=== PATIENT | female | born 1985 | race Caucasian/White ===

== ENCOUNTER → 2023-12-23 12:16 | Outpatient (REF) | payer OTHER, SELFPAY ==
[2023-12-23 13:51] LABS: INR 1.15; PT 14.7 Sec (11.4-14.6)
[2023-12-23 14:03] LABS: ALT (SGPT) 22 U/L (0-35); AST (SGOT) 47 U/L (14-36); Albumin 3.6 g/dl (3.5-5.0); Alkaline Phosphatase 160 U/L (38-126); Blood Urea Nitrogen 15 mg/dl (7-17); Calcium 8.6 mg/dl (8.4-10.2); Carbon Dioxide 27 mmol/L (22-30); Chloride 100 mmol/L (98-107); Direct Bilirubin 0.7 mg/dl (0.0-0.4); Glucose 94 mg/dl (70-99); Potassium 4.2 mmol/L (3.5-5.1); Sodium 132 mmol/L (135-145); Total Bilirubin 1.1 mg/dl (0.2-1.3); Total Protein 6.2 g/dl (6.3-8.2); eGFR > 60.00
== END ==
LOC: REG 12:16
PROVIDERS: ATTENDING PHYSICIAN Nurse Practitioner
DX: K70.31 Alcoholic cirrhosis of liver with ascites (principal); B19.20 Unspecified viral hepatitis C without hepatic coma
CPT/HCPCS: 36415; 80053; 82248; 85610

== ENCOUNTER 2023-12-23 12:45 | Emergency (ER) | payer OTHER, SELFPAY ==
[2023-12-23 12:54] VITALS: BP 120/84
[2023-12-23 14:21] VITALS: BMI 26.7
[2023-12-23 16:47] VITALS: BP 100/77
[2023-12-23] MEDS: LASIX 40 MG IV (16:47)
[2023-12-23 16:49] VITALS: BP 100/77
[2023-12-23 17:00] LABS: % Basophils 0.8 % (0-2); % Eosinophils 1.4 % (0-6); % Immature Granulocytes 0.6 % (0-0.5); % Lymphocytes 19.3 % (20.5-51.1); % Monocytes 5.8 % (1.7-9.3); % Neutrophils 72.1 % (42.2-75.2); Absolute Basophils 0.1 10^3/uL (0-0.2); Absolute Eosinophils 0.1 10^3/uL (0-0.7); Absolute Lymphocytes 1.2 10^3/uL (1.2-3.4); Absolute Monocytes 0.4 10^3/uL (0.1-0.6); Absolute Neutrophils 4.6 10^3/uL (1.4-6.5); Hematocrit 37.8 % (37.0-47.0); Hemoglobin 12.8 g/dL (12.0-16.0); Mean Corp Hgb Conc. 33.9 g/dL (33.0-37.0); Mean Corpuscular Hgb 26.7 pg (27.0-31.0); Mean Corpuscular Volume 78.9 fL (81.0-99.0); Mean Platelet Volume 9.9 fL (7.4-10.4); Nucleated Red Blood Cells % 0 %; Platelet Count 198 10^3/uL (130-400); Red Blood Cell Count 4.79 10^6/uL (4.20-5.40); Red Cell Dist. Width 16.6 % (11.5-14.5); White Blood Cell Count 6.4 10^3/uL (4.8-10.8)
[2023-12-23 17:14] LABS: INR 1.22; PT 15.5 Sec (11.4-14.6)
[2023-12-23 17:56] LABS: NT-proBNP 498 pg/ml; Troponin I < 0.012 ng/ml
[2023-12-23 18:27] LABS: Urine Albumin Negative (Neg - Trace); Urine Bilirubin Negative (Negative); Urine Character Clear (Clear); Urine Color Yellow; Urine Glucose Negative (Negative); Urine Ketone Negative (Negative); Urine Leukocyte Negative (Negative); Urine Nitrite Negative (Negative); Urine Occult Blood Negative (Negative); Urine Urobilinogen Negative (Neg - 1+)
--- NOTE | 2023-12-23 20:13 | ED.GENMED ---
History of Present Illness
General
Chief Complaint: Swelling
Source: patient and spouse
Exam Limitations: none
Time Seen by Provider: 12/23/23 14:59
Nursing documentation reviewed up to this point in time: agreed with
Travel History
Have you had any contact with someone who has COVID-19?: No
Do you have any symptoms of coronavirus? Fever > 100 degrees, chills, cough, shortness of breath, sore throat, loss of taste or smell, muscle aches, or headache?: No
History of Present Illness
History of Present Illness:
38-year-old female past medical history of hepatitis C cirrhosis frequent ascites previous substance abuse presenting to the emergency department today with concerns of increased fluid of her legs abdomen and some intermittent shortness of breath.
Denies any specific chest pain vomiting. Has had symptoms ongoing for has not had a paracentesis in multiple months.
Past History
Past History
ED Past Medical History: Other
Social History
Drug: Narcotics, IVDA and Other (amphetamine)
Review of Systems
Review of Systems
Allergies reviewed?: Yes
All Other Systems: ROS reviewed and negative except as documented in HPI and ROS
Phy Exam
Physical Exam
Physical Exam:
GENERAL: Alert , in no apparent distress
EYE: pupils equal and reactive
NECK: Supple, no significant adenopathy.
ENT: o/p clr, mmm.
CARDIAC: Regular rate and rhythm .
LUNGS: Clear breath sounds bilaterally, no acute respiratory distress, no wheezes/rales/rhonchi
ABDOMEN: Some distention of the abdomen no focal tenderness no redness or warmth.
NEUROLOGICAL: Alert and oriented, no focal neuro deficits
SKIN: Warm and dry, skin intact.
MUSCULOSKELETAL: well perfused.
PSYCH: Normal and appropriate interaction.
Course
Orders/Labs/Results
Orders:
Orders
12/23/23 16:21
EKG [Electrocardiogram (*1)] Urgent
Reason for Study: Fatigue / Weakness
Furosemide [Lasix] 40 mg IV NOW STA
12/23/23 16:22
EKG- Treatment ONCE
Chest [CR Chest - 2 Views ] Urgent
Comment:
Reason For Exam: sob
12/23/23 16:46
BNP [NT-proBNP] Urgent
Complete Blood Count/With Diff Urgent
Prothrombin Time Urgent
Troponin I Urgent
12/23/23 18:14
Urinalysis Reflex To Culture Urgent
Date Specimen was Collected: 12/23/23
Time Specimen was Collected: 18:12
Abnormal Lab Results
12/23/23
16:46
MCV 78.9 L fL
(81.0-99.0)
MCH 26.7 L pg
(27.0-31.0)
RDW 16.6 H %
(11.5-14.5)
Immature Gran % 0.6 H %
(0-0.5)
Lymphocytes % 19.3 L %
(20.5-51.1)
PT 15.5 H Sec
(11.4-14.6)
12/23/23 16:46
12/23/23 17:07
Vital Signs
Initial and Last Documented VS:
Initial Vital Signs
Temp Pulse Resp BP Pulse Ox
98.0 F 97 18 120/84 94
12/23/23 12:54 12/23/23 12:54 12/23/23 12:54 12/23/23 12:54 12/23/23 12:54
Last Documented Vital Signs
Temp Pulse Resp BP Pulse Ox
98.0 F 74 16 100/77 99
12/23/23 12:54 12/23/23 16:49 12/23/23 16:49 12/23/23 16:49 12/23/23 16:49
MDM/Problems Addressed
MDM/Problems Addressed:
38-year-old female presenting to the emergency department today with concerns of increased abdominal distention and leg swelling and some intermittent shortness of breath. Does have a history of liver disease and does frequently get fluid
overloaded. Denies specific chest pain. Evaluation here without emergent findings labs without emergent features troponin negative BMP without significant elevation urinalysis normal chest x-ray without signs of edema patient does have swelling on
her legs on examination and does have fluid to her abdomen consistent with ascites but no signs of SBP. Patient appears stable for outpatient tap routinely with interventional radiology. Interventional radiology was contacted in regard to this.
Otherwise patient can additionally follow-up with cardiology due to the more diffuse swelling for additional assessment. Return precautions were given.
*Critical Care Note
Total Time (30-74mins, 75-104mins- exclusive of procedures): Not Applicable
ED Attending Note
-
Portions of this chart may have been created with voice recognition software.� Occasional wrong word or��sound alike� substitutions may have occurred due to the inherent limitations of voice recognition software.
Discharge Plan
Departure
Patient Disposition: Home (Routine Discharge)
Date of Disposition: 12/23/23
Time of Disposition: 20:17
Patient with high blood pressure during this ER visit?: No
Condition: Good
Covid-19: Not Applicable
Discharge Problem:
Ascites, Edema, peripheral
Instructions: Dependent Edema (DC)
Prescriptions:
No Action
spironolactone 25 mg tablet
50 mg PO DAILY
furosemide [Lasix] 40 mg Tablet
40 mg PO DAILY
Referrals:
NONE,* [Family Provider] -
Shaka Cooper MD [Active] - Follow up in 5-7 days
Damir Rolle MD [Active] - Follow up in 5-7 days
Activity Restrictions/Additional Instructions:
You came to the emergency department today with concerns of excess fluid. You were given an additional dose of IV Lasix. You do have excessive fluid but nothing immediately emergent. It is important to get close follow-up with interventional
radiology. Please call [phone] to set up an appointment for an outpatient paracentesis. Please additionally follow-up closely with cardiology. Return to the emergency department immediately for any worsening, new or concerning symptoms.
Interventions
Interventions:
*Risk Screen - Suicide Last Done: 12/23/23 14:17
*General Assessment Last Done: 12/23/23 14:17
*Neglect/Abuse Screening Last Done: 12/23/23 14:17
ED- Fall Risk Assessment Last Done: 12/23/23 14:17
*ED COVID-19 Vaccine History Last Done: 12/23/23 14:17
ED- Cardiac Assessment Last Done: 12/23/23 14:17
ED- Pulmonary Assessment Last Done: 12/23/23 14:17
ED-Skin Assessment Last Done: 12/23/23 14:17
--- NOTE | 2023-12-24 15:06 | PN.[facility].UPD ---
Update Note - [facility]
- -
ED physician reached out to regarding this patient needing a paracentesis today, patient was told to follow up with [facility] in the am. We do not have an active excellence coach order for a Paracentesis for this patient. Patient was non-compliant
with GI visits and labs and they pulled her order until she see's them in the office. I called the patient to remind her of this, phone went to and a message was left. This has been discussed with the patient several times in the past. If a
paracentesis is needed an OP order will need to be sent to [facility].
== END 2023-12-23 20:49 | disposition home or self-care (01) ==
LOC: EMR 12:45
PROVIDERS: Physician Assistant; EMERGENCY PHYSICIAN Emergency Medicine
DX: R18.8 Other ascites (principal); K74.60 Unspecified cirrhosis of liver; Z86.19 Personal history of other infectious and parasitic diseases
CPT/HCPCS: 99283; 96374; 36415; 71046; 80053; 81003; 82248; 83880; 84484; 85025; 85610; 93005

== ENCOUNTER 2024-08-24 11:33 | Emergency (ER) | payer OTHER, SELFPAY ==
[2024-08-24 11:42] VITALS: BP 136/85
[2024-08-24 12:02] LABS: % Basophils 0.7 % (0-2); % Immature Granulocytes 0.2 % (0-0.5); % Lymphocytes 25.6 % (20.5-51.1); % Monocytes 7.4 % (1.7-9.3); % Neutrophils 64.1 % (42.2-75.2); Absolute Eosinophils 0.1 10^3/uL (0-0.7); Absolute Lymphocytes 1.1 10^3/uL (1.2-3.4); Absolute Monocytes 0.3 10^3/uL (0.1-0.6); Absolute Neutrophils 2.9 10^3/uL (1.4-6.5); Hematocrit 37.8 % (37.0-47.0); Hemoglobin 12.8 g/dL (12.0-16.0); Mean Corp Hgb Conc. 33.9 g/dL (33.0-37.0); Mean Corpuscular Hgb 28.1 pg (27.0-31.0); Mean Corpuscular Volume 82.9 fL (81.0-99.0); Mean Platelet Volume 10.4 fL (7.4-10.4); Nucleated Red Blood Cells % 0 %; Platelet Count 178 10^3/uL (130-400); Red Blood Cell Count 4.56 10^6/uL (4.20-5.40); Red Cell Dist. Width 14.9 % (11.5-14.5); White Blood Cell Count 4.5 10^3/uL (4.8-10.8)
[2024-08-24 12:15] LABS: Blood Urea Nitrogen 10 mg/dl (7-17); Calcium 8.9 mg/dl (8.4-10.2); Carbon Dioxide 24 mmol/L (22-30); Chloride 106 mmol/L (98-107); Glucose 63 mg/dl (70-99); Lipase 68 U/L (23-300); Sodium 140 mmol/L (135-145); eGFR > 60.00
--- NOTE | 2024-08-24 13:49 | ED.GENMED ---
History of Present Illness
General
Chief Complaint: Abdominal Symptoms
Source: patient
Exam Limitations: none
Time Seen by Provider: 08/24/24 13:16
Nursing documentation reviewed up to this point in time: agreed with
History of Present Illness
History of Present Illness:
39-year-old female presents emergency room complaining of her abdomen feeling with fluid and requiring paracentesis. She has not had paracentesis since July 2023. She has been in rehab for opiate abuse. She is maintained on Subutex. She has
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 She states she called for an appointment because she ran out of her Lasix and spironolactone within the past several months, and was unable to get seen again.
Past History
Past History
ED Past Medical History: Other (Hepatitis C, cirrhosis)
ED Past Surgical History: Other (Left arm surgery)
Social History
Tobacco: Smoker
Alcohol: None
Drug: Narcotics, IVDA and Other (amphetamine)
Review of Systems
Review of Systems
Allergies reviewed?: Yes
All Other Systems: Not applicable
Constitutional: Reports no symptoms
EENT: Reports no symptoms
Respiratory: Reports no symptoms
Cardiac: Reports no symptoms
ABD/GI: Reports other (Abdomen swelling)
: Reports no symptoms
Musculoskeletal: Reports no symptoms
Skin: Reports no symptoms
Neurological: Reports no symptoms
Endocrine: Reports no symptoms
Hematologic/Lymphatic: Reports no symptoms
Psychiatric: Reports no symptoms
Phy Exam
Physical Exam
Physical Exam:
Physical Exam
General: no apparent distress, not acutely ill
Neck: supple. no meningeal signs. normal posterior pharynx
Heart: s1/s2 regular rate and rhythm, no murmur. equal radial
pulses.
HEENT: Pupils equal round reactive to light, EOMI
Lungs: no acute respiratory distress. clear bilaterally
Abdomen: normal bowel sounds. not tender. no CVAT, ascites, no abdominal tenderness
Neuro: alert and oriented. no focal neurological deficits cranial nerves II through XII intact
Skin: no rash
Psychiatric: well kept. interactive and cooperative
Extremities: no edema. no calf tenderness. negative homans. good distal pulses
Course
Orders/Labs/Results
Orders:
Orders
08/24/24 11:53
Basic Metabolic Panel Urgent
Complete Blood Count/With Diff Urgent
Lipase Urgent
08/24/24 12:16
Add On- LAB Urgent
Tests Added?: LFT's
08/24/24 13:45
Mdhti-Uucy-Zkwrtzj Routine
Potassium Urgent
08/24/24 14:46
Furosemide [Lasix] 40 mg PO NOW STA
08/24/24 14:56
Spironolactone [Aldactone] 50 mg PO NOW STA
Abnormal Lab Results
08/24/24 08/24/24
11:53 13:45
WBC 4.5 L 10^3/uL
(4.8-10.8)
RDW 14.9 H %
(11.5-14.5)
Absolute Lymphs (auto) 1.1 L 10^3/uL
(1.2-3.4)
Glucose 63 L mg/dl
(70-99)
Total Protein 6.0 L g/dl
(6.3-8.2)
Albumin 3.4 L g/dl
(3.5-5.0)
08/24/24 11:53
08/24/24 13:45
Vital Signs
Initial and Last Documented VS:
Initial Vital Signs
Temp Pulse Resp BP Pulse Ox
98.2 F 74 19 136/85 97
08/24/24 11:42 08/24/24 11:42 08/24/24 11:42 08/24/24 11:42 08/24/24 11:42
Last Documented Vital Signs
Temp Pulse Resp BP Pulse Ox
98.2 F 72 19 136/85 97
08/24/24 11:42 08/24/24 15:03 08/24/24 11:42 08/24/24 11:42 08/24/24 11:42
MDM/Problems Addressed
Differential Diagnosis Includes:
Cirrhosis, ascites
MDM/Problems Addressed:
39-year-old female with cirrhosis and ascites, no indication for emergent paracentesis. Do not suspect SBP. Discussed with gastroenterology, who will follow-up with patient tomorrow.
Chronic conditions affecting care: Other (Cirrhosis)
Acute Exacerbation and/or Progression of Chronic Illness: Other (Cirrhosis)
*Critical Care Note
Total Time (30-74mins, 75-104mins- exclusive of procedures): Not Applicable
Data Reviewed
Further Testing Considered But Not Given:
CT abdomen pelvis not indicated
Patient Management
Social determinants of health affecting care: Living situation and Substance abuse (Now in recovery)
Discussion with other providers: Coding Tech (Discussed with Dr. Torres, gastroenterology, has arrange follow-up)
Escalation/DeEscalation of care consider admission/obs:
Admit not indicated
ED Attending Note
-
Portions of this chart may have been created with voice recognition software.� Occasional wrong word or��sound alike� substitutions may have occurred due to the inherent limitations of voice recognition software.
Discharge Plan
Departure
Patient Disposition: Home (Routine Discharge)
Date of Disposition: 08/24/24
Time of Disposition: 14:48
Patient with high blood pressure during this ER visit?: Yes
Condition: Good
Discharge Problem:
Abdominal ascites
Instructions: Fluid in the Belly (Ascites) (DC), BLOOD PRESSURE
Prescriptions:
New
furosemide [Lasix] 40 mg tablet
40 mg PO DAILY Qty: 7 0RF
spironolactone 50 mg tablet
50 mg PO DAILY Qty: 7 0RF
No Action
spironolactone 25 mg tablet
50 mg PO DAILY
furosemide [Lasix] 40 mg Tablet
40 mg PO DAILY
Referrals:
Suzna Dickson MD [Active] - Tomorrow
Osmani Harris DO [Active] - Next open appointment
NONE,* [Family Provider] - Call in 1-3 days for appt
Interventions
Interventions:
*Risk Screen - Suicide Last Done: 08/24/24 11:42
*General Assessment Last Done: 08/24/24 11:42
*Neglect/Abuse Screening Last Done: 08/24/24 11:42
ED- Fall Risk Assessment Last Done: 08/24/24 15:18
*Nursing Disposition Last Done: 08/24/24 15:18
ZG-Wpxsec-Rfazbbuxad Assessment Last Done: 08/24/24 13:30
Discharge Date and Time
Discharge Date/Time: 08/24/24 15:20
Print Language: ALBANIAN
[2024-08-24 14:38] LABS: ALT (SGPT) 16 U/L (0-35); AST (SGOT) 34 U/L (14-36); Albumin 3.4 g/dl (3.5-5.0); Alkaline Phosphatase 119 U/L (38-126); Direct Bilirubin 0.4 mg/dl (0.0-0.4); Potassium 4.3 mmol/L (3.5-5.1); Total Bilirubin 0.9 mg/dl (0.2-1.3)
[2024-08-24] MEDS: LASIX 40 MG PO (15:03)
[2024-08-24] MEDS: ALDACTONE 50 MG PO (15:03)
== END 2024-08-24 15:20 | disposition home or self-care (01) ==
LOC: EMR 11:33
PROVIDERS: Emergency Medicine; EMERGENCY PHYSICIAN Emergency Medicine
DX: R18.8 Other ascites (principal); K74.60 Unspecified cirrhosis of liver; F17.200 Nicotine dependence, unspecified, uncomplicated
CPT/HCPCS: 99283; 80048; 80076; 83690; 84132; 85025

== ENCOUNTER 2024-12-16 20:29 | Emergency (ER) | payer OTHER, SELFPAY ==
[2024-12-16 20:32] VITALS: BP 147/97
--- NOTE | 2024-12-16 23:47 | ED.GENMED ---
History of Present Illness
General
Chief Complaint: Prescription Refill
Source: patient
Exam Limitations: none
Time Seen by Provider: 12/16/24 23:42
Nursing documentation reviewed up to this point in time: agreed with
History of Present Illness
History of Present Illness:
This 39-year-old female presents to the emergency department in need of methadone. She gets her 35 mg of methadone at the methadone clinic. Today she did not have access to her vehicle until it was too late. She went to the clinic and it was
already closed. Possibly due to the weather.
Past History
Past History
ED Past Medical History: Other (Hepatitis C, cirrhosis)
ED Past Surgical History: Other (Left arm surgery)
Social History
Tobacco: Smoker
Alcohol: None
Drug: Narcotics, IVDA and Other (amphetamine)
Review of Systems
Review of Systems
Allergies reviewed?: Yes
All Other Systems: ROS reviewed and negative except as documented in HPI and ROS
Constitutional: Reports no symptoms
EENT: Reports no symptoms
Respiratory: Reports no symptoms
Cardiac: Reports no symptoms
ABD/GI: Reports no symptoms
: Reports no symptoms
Musculoskeletal: Reports no symptoms
Skin: Reports no symptoms
Neurological: Reports no symptoms
Endocrine: Reports no symptoms
Hematologic/Lymphatic: Reports no symptoms
Psychiatric: Reports no symptoms
Phy Exam
General Physical Exam
General Presentation: well appearing
General Skin: warm and dry
General Habitus: normal
General Mental: alert
Pulmonary Exam
Pulmonary Exam: no respiratory distress and no cough
Neurological Exam
Neurological Exam: alert and oriented x3
Musculoskeletal Exam
Musculoskeletal Exam: full ROM
Skin Exam
Skin Exam: normal color and warm/dry
Psychiatric Exam
Psychiatric Exam: normal mood/affect
Course
Orders/Labs/Results
Orders:
Orders
12/16/24 23:00
Flush (0.9% Sodium Chloride) [Flush (Nss)] See Dose Instructions IV PER PROTOCOL
12/16/24 23:53
Methadone HCl [Methadone 100 mg/10 ml] 35 mg PO NOW STA
Vital Signs
Initial and Last Documented VS:
Initial Vital Signs
Temp Pulse Resp BP Pulse Ox
97.9 F 84 18 147/97 99
12/16/24 20:32 12/16/24 20:32 12/16/24 20:32 12/16/24 20:32 12/16/24 20:32
Last Documented Vital Signs
Temp Pulse Resp BP Pulse Ox
97.9 F 78 20 129/85 98
12/16/24 20:32 12/17/24 00:16 12/17/24 00:16 12/17/24 00:16 12/17/24 00:16
*Critical Care Note
Total Time (30-74mins, 75-104mins- exclusive of procedures): Not Applicable
ED Attending Note
-
Portions of this chart may have been created with voice recognition software.� Occasional wrong word or��sound alike� substitutions may have occurred due to the inherent limitations of voice recognition software.
Discharge Plan
Departure
Patient Disposition: Home (Routine Discharge)
Date of Disposition: 12/16/24
Time of Disposition: 23:54
Patient with high blood pressure during this ER visit?: Yes
Discharge Problem:
Methadone maintenance therapy patient
Instructions: Methadone, BLOOD PRESSURE
Prescriptions:
No Action
spironolactone 25 mg tablet
50 mg PO DAILY
furosemide [Lasix] 40 mg Tablet
40 mg PO DAILY
furosemide [Lasix] 40 mg tablet
40 mg PO DAILY Qty: 7 0RF
spironolactone 50 mg tablet
50 mg PO DAILY Qty: 7 0RF
Referrals:
[facility] [Outside]
NONE,* [Family Provider] -
Activity Restrictions/Additional Instructions:
It was a pleasure meeting you and taking part in your care. We hope for your continued healing and wellness.
Please read discharge instructions in their entirety. However, they are for general education and may not describe your exact diagnosis at discharge. Information on your ER visit and medical conditions were discussed with you along with appropriate
follow up information...
If indicated, please take your medications as instructed and indicated on discharge paperwork.
Please schedule a follow up appointment as directed. Call to schedule an appointment
Please return to the emergency department with ANY change in, persisting, or worsening of symptoms. If any of your symptoms do not improve, or persist, or become more severe within 6-12 hours, please return to the emergency department for further
care.
Please return to the emergency department if you develop a headache, neck pain/stiffness, fever greater than 100.4F, chest pain, shortness of breath, persistent nausea, vomiting, slurred speech, difficulty walking, numbness/tingling, weakness, signs
of infection or any other symptoms that are worrisome to you.
or E-mail me directly at [email or web address]
Interventions
Interventions:
*Risk Screen - Suicide Last Done: 12/17/24 00:17
*General Assessment Last Done: 12/17/24 00:17
*Neglect/Abuse Screening Last Done: 12/17/24 00:17
ED- Fall Risk Assessment Last Done: 12/17/24 00:17
*ED COVID-19 Vaccine History Last Done: 12/17/24 00:17
*Nursing Disposition Last Done: 12/17/24 00:33
Discharge Date and Time
Discharge Date/Time: 12/17/24 00:35
Print Language: [place]ALLIS[place]
[2024-12-17] MEDS: METHADONE 100 MG/10 ML 35 MG PO (00:14)
[2024-12-17 00:16] VITALS: BP 129/85
== END 2024-12-17 00:35 | disposition home or self-care (01) ==
LOC: EMR 20:29
PROVIDERS: EMERGENCY PHYSICIAN Student in an Organized Health Care Education/Training Program
DX: Z76.0 Encounter for issue of repeat prescription (principal); F11.20 Opioid dependence, uncomplicated; R03.0 Elevated blood-pressure reading, without diagnosis of hypertension; F17.200 Nicotine dependence, unspecified, uncomplicated
CPT/HCPCS: 99283